=== PATIENT | female | born 1960 | race American Indian/Alaskan Native ===

== ENCOUNTER 2017-01-21 21:18 | Emergency (ER) | payer OTHER ==
[2017-01-21] MEDS ORDERED: DUONEB 0.5 MG-3 MG/3 ML SOLN IH ONE ×2 (21:37→21:42)
[2017-01-21] MEDS ORDERED: XOPENEX IH ONE ×2 (22:13)
[2017-01-21] MEDS ORDERED: VALIUM PO ONE (22:13)
[2017-01-21] MEDS ORDERED: DELTASONE PO ONE (22:13)
[2017-01-21] MEDS ORDERED: ATROVENT IH ONE ×2 (22:15→22:20)
--- NOTE | 2017-01-21 22:15 | Emergency Department Report ---
HPI - General Chief Complaint: Upper Respiratory Infection Time Seen by Provider: 01/21/17 22:06 - HPI HPI: Patient here reporting that she has 3 weeks of asthma flareup with symptoms of chest congestion which is worsening. She denies any shortness of breath or chest pain. She says she's been having taken [id number] medication for cough but is not helping. She takes albuterol, Singulair and Combivent at home. She says she's been taking this medication but it's not helping. She said she is having chest tightness on and off without any radiation feels tight to the middle of her chest is worse when she coughs and is 8 out of 10. Denies any history of high blood pressure. Patient blood pressure is 161/106. She is asymptomatic. Denies any headache, shortness of breath she says she does not have high blood pressure only when she is sick. She says she has a history of a TIA in the past. She denies any fever or chills. ED Past Medical Hx - Past Medical History Previous Medical History?: Yes Hx Hypertension: No Hx CVA: Yes (tia) Hx Headaches / Migraines: Yes Hx Asthma: Yes - Surgical History Past Surgical History?: Yes Additional Surgical History: myomectomy - Family History Family history: hypertension - Social History Smoking Status: Never Smoker Substance Use Type: None - Medications Home Medications: Home Medications Medication Instructions Recorded Confirmed Last Taken Type ALBUTEROL NEB's IH Q4H PRN 01/21/17 Unknown History Cetirizine HCl [ZyrTEC] 10 mg PO QDAY #14 capsule 01/21/17 Unknown Rx Combivent Inhaler 1 puff IH DAILY 01/21/17 01/21/17 Unknown History Fluticasone [Flonase] 1 spray NS QDAY #1 bottle 01/21/17 Unknown Rx Levofloxacin [Levaquin] 750 mg PO QDAY #10 tablet 01/21/17 Unknown Rx Montelukast [Singulair] 10 mg PO QPM 01/21/17 01/21/17 Unknown History Symbicort 160-4.5 (Nf) 1 puff IH DAILY 01/21/17 01/21/17 Unknown History guaiFENesin/CODEINE [Robitussin AC] 10 ml PO QHS PRN #70 ml 01/21/17 Unknown Rx predniSONE [Deltasone] 50 mg PO QDAY #5 tab 01/21/17 Unknown Rx ED Review of Systems ROS: Stated complaint: ASTHMA/CHEST CONGESTION Other details as noted in HPI Comment: All other systems reviewed and negative Constitutional: denies: chills, fever ENT: denies: throat pain Cardiovascular: denies: chest pain, palpitations, edema, syncope Gastrointestinal: nausea. denies: abdominal pain, vomiting, diarrhea, constipation, hematemesis Genitourinary: urgency, dysuria, frequency, discharge. denies: hematuria Musculoskeletal: back pain. denies: arthralgia, myalgia Skin: denies: rash Neurological: denies: headache, vertigo Physical Exam - Physical Exam Vital Signs: Vital Signs 01/21/17 01/21/17 01/21/17 21:28 21:31 21:42 Temperature 98.4 F 98.4 F Pulse Rate 96 H 96 H Pulse Rate [ 87 Anterior Bilateral] Respiratory 18 Rate Respiratory 20 Rate [Anterior Bilateral] Blood Pressure 161/106 Blood Pressure 161/106 [Right] O2 Sat by Pulse 97 97 Oximetry 01/21/17 21:52 Temperature Pulse Rate Pulse Rate [ 83 Anterior Bilateral] Respiratory Rate Respiratory 18 Rate [Anterior Bilateral] Blood Pressure Blood Pressure [Right] O2 Sat by Pulse Oximetry General: This is a 56-year-old patient well-nourished well-developed and appears very anxious. Physical Exam: Head: Normocephalic atraumatic Mouth: Moist, no pharyngeal exudate or erythema. Uvula is midline and oral airway is patent. No facial swelling. No peritonsillar abscesses. Nose: Congested without erythema to mucosa. Clear Drainage. Maxillary and frontal sinuses nontender to palpate Neck: Supple, no C-spine tenderness, no tracheal deviation. Nontender to palpate. no adenopathy Ears: Bilateral TMs congested without erythema. Bilateral EAC without any redness swelling or drainage. Abdomen: Soft, nontender to palpate in all quadrants, normal bowel sounds in all quadrant and negative CVA tenderness bilaterally. Neurological: GCS of 15, alert and oriented 3. Speech is clear and fluid. Normal gait. No motor or sensory deficit. Normal reflexes. No facial drooping. No pronator drift and negative Romberg. Eyes: Bilateral pupils equal and reactive to light, bilateral EOM intact. Bilateral sclera and conjunctiva without injection. Normal accommodation. No nystagmus Lungs: Scattered wheezing throughout all lung fernando. Normal work of breathing and no use of accessory muscle. Dry cough noted. extremity; No CCE. +2 pulses. No neurovascular compromise Cardiovascular: S1-S2, regular rate rhythm. No murmurs. Skin: clean Dry and intact no rash no lesions Psych: Anxiety. ED Course Vital Signs 01/21/17 01/21/17 01/21/17 21:28 21:31 21:42 Temperature 98.4 F 98.4 F Pulse Rate 96 H 96 H Pulse Rate [ 87 Anterior Bilateral] Respiratory 18 Rate Respiratory 20 Rate [Anterior Bilateral] Blood Pressure 161/106 Blood Pressure 161/106 [Right] O2 Sat by Pulse 97 97 Oximetry 01/21/17 21:52 Temperature Pulse Rate Pulse Rate [ 83 Anterior Bilateral] Respiratory Rate Respiratory 18 Rate [Anterior Bilateral] Blood Pressure Blood Pressure [Right] O2 Sat by Pulse Oximetry Vital Signs 01/21/17 01/21/17 01/21/17 21:28 21:31 21:42 Temperature 98.4 F 98.4 F Pulse Rate 96 H 96 H Pulse Rate [ 87 Anterior Bilateral] Respiratory 18 Rate Respiratory 20 Rate [Anterior Bilateral] Blood Pressure 161/106 Blood Pressure 161/106 [Right] O2 Sat by Pulse 97 97 Oximetry 01/21/17 01/21/17 01/21/17 21:52 22:21 22:53 Temperature Pulse Rate Pulse Rate [ 83 77 81 Anterior Bilateral] Respiratory Rate Respiratory 18 18 18 Rate [Anterior Bilateral] Blood Pressure Blood Pressure [Right] O2 Sat by Pulse Oximetry 01/21/17 23:54 Temperature Pulse Rate 95 H Pulse Rate [ Anterior Bilateral] Respiratory 17 Rate Respiratory Rate [Anterior Bilateral] Blood Pressure Blood Pressure 120/80 [Right] O2 Sat by Pulse 99 Oximetry - Reevaluation(s) Reevaluation #1: 01/21/17 23:47 Patient received DuoNeb in triage and Atrovent and Xopenex in emergency room. She is also given Valium due to anxiety and Deltasone 60 mg by mouth. Upon reevaluation, patient lungs are clear and she says she feels a lot better and she is more calm at present. Reevaluation #2: 01/21/17 23:58 Blood pressure is now 120/80. ED Medical Decision Making - Radiology Data Radiology results: report reviewed Chest x-ray revealed no acute cardiopulmonary processes. - Medical Decision Making ED course: Patient presented with complain of asthma 3 weeks with coughing. Her x-ray revealed no acute cardiopulmonary processes. She diagnosis is acute upper respiratory tract infection, acute asthma exacerbation and cough. She was treated with DuoNeb times one in triage area. She was also given Xopenex 2.5 mg and Atrovent 0.5 mg nebulizer in emergency room. Patient was anxious about her health status she was given Valium 10 mg by mouth which relieved her anxiety. She was given Deltasone 60 mg by mouth. Patient is on asthma medication at home and I encouraged her to continue to take her albuterol and Combivent. Upon reevaluation of her lungs after treatment, her lung sounds were clear she states that she was feeling better. She is no longer anxious. Patient discharged home with prescription for guaifenesin with codeine, Zyrtec, Flonase ,Levaquin and prednisone. Allergic to erythromycin and penicillins. Critical care attestation.: If time is entered above; I have spent that time in minutes in the direct care of this critically ill patient, excluding procedure time. ED Disposition Clinical Impression: Cough, Anxiety about health Asthma exacerbation attacks Qualifiers: Asthma severity: mild persistent Qualified Code(s): J45.31 - Mild persistent asthma with (acute) exacerbation Upper respiratory tract infection Qualifiers: URI type: unspecified URI Qualified Code(s): J06.9 - Acute upper respiratory infection, unspecified Disposition: DISCHARGED TO HOME OR SELFCARE Is pt being admited?: No Does the pt Need Aspirin: No Condition: Stable Instructions: Asthma (ED), Upper Respiratory Infection (ED), Acute Cough (ED) Additional Instructions: Please continue taking her albuterol and other asthma medication as directed by her primary care physician. Please take Deltasone as directed. Please keep a log of her blood pressure because it was elevated in emergency room and toothache to her primary care physician with [facility] for evaluation. Please do not drive or operate heavy machinery while taking cough medicine at this medication causes drowsiness. If you are feeling just and not getting better, he needs to return to the emergency room. Please increase her fluid intake to at least 2 L of fluid per day. Prescriptions: guaiFENesin/CODEINE [Robitussin AC] 10 ml PO QHS PRN #70 ml PRN Reason: Cough Cetirizine HCl [ZyrTEC] 10 mg PO QDAY #14 capsule Fluticasone [Flonase] 1 spray NS QDAY #1 bottle Levofloxacin [Levaquin] 750 mg PO QDAY #10 tablet predniSONE [Deltasone] 50 mg PO QDAY #5 tab Referrals: Your, Doctor [Other] - 01/23/17 [facility] [Outside] - 01/23/17 Forms: Work/School Release Form(ED)
--- NOTE | 2017-01-21 23:29 | XRay Report ---
FINAL REPORT PROCEDURE: XR CHEST ROUTINE 2V TECHNIQUE: PA and lateral chest radiographs were obtained. CPT 38227 HISTORY: cough COMPARISON: No prior studies are available for comparison. FINDINGS: Heart: Normal. Mediastinum/Vessels: Normal. Lungs/Pleural space: Normal. Bony thorax: No acute osseous abnormality. Other: IMPRESSION: Normal examination.
[2017-01-21 23:55] VITALS: BP 120/80
== END 2017-01-22 00:07 | disposition home or self-care (01) ==
LOC: ED 21:18
DX: J45.31 Mild persistent asthma with (acute) exacerbation (principal); J06.9 Acute upper respiratory infection, unspecified; F41.9 Anxiety disorder, unspecified; G43.909 Migraine, unspecified, not intractable, without status migrainosus
CPT/HCPCS: 71020; 94640; 99284; J7512